=== PATIENT | male | born 1990 | race Two or more races ===

== ENCOUNTER 2017-06-09 13:51 | Emergency (ER) | payer OTHER ==
--- NOTE | 2017-06-09 15:34 | ER ---
Nurse's Notes [facility] Name: Ethan Robertson Age: 26 yrs Sex: Male : 1990 Arrival Date: 06/09/2017 Time: 13:54 Bed 11 Private MD: Diagnosis: Ingrown Toenail Presentation: 06/09 13:58 Presenting complaint: Patient states: i have toe ingrown on my R big toe for a month hj now and i fell like its infected;. Transition of care: patient was not received from another setting of care. Onset of symptoms was June 09, 2017. Care prior to arrival: None. 13:58 Method Of Arrival: Ambulatory 13:58 Acuity: EMILY 4 hj Triage Assessment: 14:00 General: Appears in no apparent distress. uncomfortable, Behavior is calm, cooperative, hj appropriate for age. Pain: Complains of pain in Right first toenail. Historical: - Allergies: 14:00 No Known Allergies; hj - Home Meds: 14:00 None [Active]; hj - PMHx: 14:00 None; hj - PSHx: 14:00 None; hj Vital Signs: 14:00 BP 124 / 80; Pulse 57; Resp 18; Temp 97.4(TE); Pulse Ox 100% on R/A; Weight 86 kg; hj Height 5 ft. 10 in. (177.80 cm); 14:00 Body Mass Index 26.54 (86.00 kg, 177.80 cm) hj ED Course: 13:54 Patient arrived in ED. mr 13:59 Triage completed. hj 14:00 Arm band placed on right wrist. hj 14:42 [facility]ask[facility] Huang [facility] eamon 14:42 Richard Ellsworth MD is Attending Physician. jr8 Administered Medications: No medications were administered Outcome: 15:33 Discharge ordered by . eamon 15:55 Patient left the ED. hj 16:19 Patient left the ED. eamon Signatures: Francie Viera mr Jaskaran Huang PA PA jr8 Joaquin, Henry RN RN hj Corrections: (The following items were deleted from the chart) 14:02 14:00 Pulse 57bpm; Resp 18bpm; Pulse Ox 100% RA; Temp 97.4F Temporal; 86 kg; Height 5 hj ft. 10 in.; BMI: 26.5; hj
--- NOTE | 2017-06-09 15:34 | EDPHYS ---
Physician Documentation [facility] Name: Ethan Robertson Age: 26 yrs Sex: Male : 1990 Arrival Date: 06/09/2017 Time: 13:54 Bed 11 Private MD: ED Physician Richard Ellsworth HPI: 06/09 14:52 This 26 yrs old Male presents to ER via Ambulatory with complaints of Infected Toe. jr8 15:29 Onset: The symptoms/episode began/occurred gradually, 2 week(s) ago. Associated signs jr8 and symptoms: The patient has no apparent associated signs or symptoms. Severity of symptoms: At their worst the symptoms were mild, in the emergency department the symptoms are unchanged. The patient has not experienced similar symptoms in the past. The patient has not recently seen a physician. Patient stated that he has ingrown toenail. Had removed part of it himself and expressed exudate from right great toe. Came to ED to see if we needed to remove further . Historical: - Allergies: 14:00 No Known Allergies; hj - Home Meds: 14:00 None [Active]; hj - PMHx: 14:00 None; hj - PSHx: 14:00 None; hj ROS: 15:29 Eyes: Negative for injury, pain, redness, and discharge, ENT: Negative for injury, jr8 pain, and discharge, Neck: Negative for injury, pain, and swelling, Cardiovascular: Negative for chest pain, palpitations, and edema, Respiratory: Negative for shortness of breath, cough, wheezing, and pleuritic chest pain, Abdomen/GI: Negative for abdominal pain, nausea, vomiting, diarrhea, and constipation, Back: Negative for injury and pain, Skin: Negative for injury, rash, and discoloration, Neuro: Negative for headache, weakness, numbness, tingling, and seizure. 15:29 MS/extremity: Positive for pain, tenderness, of the right foot. Exam: 15:29 Cardiovascular: Regular rate and rhythm with a normal S1 and S2. No gallops, murmurs, jr8 or rubs. Normal PMI, no JVD. No pulse deficits. Respiratory: Lungs have equal breath sounds bilaterally, clear to auscultation and percussion. No rales, rhonchi or wheezes noted. No increased work of breathing, no retractions or nasal flaring. Skin: Warm, dry with normal turgor. Normal color with no rashes, no lesions, and no evidence of cellulitis. Neuro: Awake and alert, GCS 15, oriented to person, place, time, and situation. Cranial nerves II-XII grossly intact. Motor strength 5/5 in all extremities. Sensory grossly intact. Cerebellar exam normal. Normal gait. 15:29 Musculoskeletal/extremity: Extremities: grossly normal except: noted in the right great toe: ROM: intact in all extremities, Circulation is intact in all extremities. Sensation intact. mild pain noted to lateral aspect of right great toe. No exudate noted from toe. Dried blood noted to nail fold. no erythema noted. Negative for swelling . Vital Signs: 14:00 BP 124 / 80; Pulse 57; Resp 18; Temp 97.4(TE); Pulse Ox 100% on R/A; Weight 86 kg; hj Height 5 ft. 10 in. (177.80 cm); 14:00 Body Mass Index 26.54 (86.00 kg, 177.80 cm) MDM: 14:42 Patient medically screened. [facility] 15:29 Data reviewed: vital signs, nurses notes, and as a result, I will discharge patient. [facility] Data interpreted: Pulse oximetry: on room air is 100 %. Interpretation: normal. Counseling: I had a detailed discussion with the patient and/or guardian regarding: the historical points, exam findings, and any diagnostic results supporting the discharge/admit diagnosis, the need for outpatient follow up, a picc nurse, to return to the emergency department if symptoms worsen or persist or if there are any questions or concerns that arise at home. ED course: Discussed with patient that he should take his antibiotics already given to him. That he needs to follow up with podiatry for definitive care to further remove nail. Administered Medications: No medications were administered Disposition: 18:33 Co-signature as Attending Physician, Richard Ellsworth MD. rn Disposition: 06/09/17 15:33 Discharged to Home. Impression: Ingrown Toenail . - Condition is Stable. - Discharge Instructions: Ingrown Toenail. - Prescriptions for Keflex 500 mg Oral Capsule - take 1 capsule by ORAL route every 6 hours for 7 days; 28 capsule. - Medication Reconciliation Form, Thank You Letter, Antibiotic Education, Prescription Opioid Use form. - Follow up: Private Physician; When: 1 week; Reason: Recheck today's complaints, Continuance of care, Re-evaluation by your physician. - Problem is new. - Symptoms are unchanged. Signatures: Richard Ellsworth MD MD rn Roszak, Josh, PA PA jr8 Gonzalo Augustine RN RN hj Corrections: (The following items were deleted from the chart) 16:27 15:29 Musculoskeletal/extremity: Extremities: grossly normal except: noted in the right jr8 great toe: ROM: intact in all extremities, Circulation is intact in all extremities. Sensation intact. mild pain noted to lateral aspect of right great toe. No exudate noted from toe. Dried blood noted to nail fold. Mild erythema noted. Negative for swelling . jr8
== END 2017-06-09 16:19 | disposition home or self-care (01) ==
LOC: ER 13:51
DX: L60.0 Ingrowing nail (principal)
CPT/HCPCS: 99281